=== PATIENT | male | born 1990 | race Caucasian/White ===

== ENCOUNTER 2022-06-07 11:22 | Inpatient (IN) | payer SELFPAY ==
[2022-06-07 11:22] VITALS: BP 134/82; PULSE 70; RESP 18; TEMP 36.6; O2SAT 98
[2022-06-07 11:29] VITALS: BMI 28.1
[2022-06-07 14:00] VITALS: BP 115/64; PULSE 77; RESP 16; TEMP 36.6; O2SAT 97
[2022-06-07 21:07] VITALS: RESP 18
[2022-06-08 06:00] VITALS: BP 120/72; PULSE 77; RESP 16; TEMP 36.7; O2SAT 98
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
[2022-06-08 14:00] VITALS: BP 124/82; PULSE 80; RESP 20; TEMP 36.8; O2SAT 98
[2022-06-08] MEDS: fluoxetine 20 mg Capsule PO (16:42)
[2022-06-08 19:40] VITALS: BP 123/74; PULSE 68; RESP 16; TEMP 36.9; O2SAT 98
[2022-06-09 06:00] VITALS: BP 138/72; PULSE 76; RESP 16; TEMP 36.9; O2SAT 98
[2022-06-09] MEDS: fluoxetine 20 mg Capsule PO (09:35)
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
[2022-06-09 13:35] VITALS: BP 138/72; PULSE 76; RESP 16; TEMP 36.9; O2SAT 98
== END 2022-06-09 15:38 | disposition home or self-care (01) | DRG 881 ==
PROVIDERS: Admitting Provider Psychiatry & Neurology Psychiatry; Visit Provider Psychiatry & Neurology Psychiatry
DX: F32.9 Major depressive disorder, single episode, unspecified (principal); Z63.0 Problems in relationship with spouse or partner; F43.25 Adjustment disorder with mixed disturbance of emotions and conduct
CPT/HCPCS: 97165